=== PATIENT | male | born 1995 | race Caucasian/White ===

== ENCOUNTER 2018-09-28 22:00 | Emergency (ER) | payer BC ==
[~2018-09-28] VITALS: Ht 177.8 cm; Wt 63.5 kg
[2018-09-28 22:19] LABS: ABSOLUTE LYMPHOCYTES 2.7 thou/uL (0.8-5.3); NUCLEATED RBCS 0 /100WBC
[2018-09-28 22:20] LABS: ABSOLUTE BASOPHILS 0.1 thou/uL (0.0-0.2); ABSOLUTE EOSINOPHILS 0.2 thou/uL (0.0-0.7); ABSOLUTE MONOCYTES 0.9 thou/uL (0.0-1.2); ABSOLUTE NEUTROPHILS 6.2 thou/uL (1.6-8.1); HEMATOCRIT 44.7 % (42.0-52.0); LYMPHOCYTES 26.8 %; MCH 29.2 pg (26.0-34.0); MCHC 33.5 g/dL (28.0-37.0); MCV 87.4 fL (80.0-100.0); MONOCYTES 9.3 %; MPV 7.6 fl. (7.2-11.1); PLATELET COUNT* 384 thou/uL (150-400); POLYS 60.9 %; RBC 5.12 mil/uL (4.50-6.00); RDW-CV 13.9 % (10.5-14.5); WBC 10.2 thou/uL (4.0-11.0)
[2018-09-28 22:30] LABS: CALCIUM 8.9 mg/dL (8.5-10.1); CREATININE 1.3 mg/dL (0.6-1.3); POTASSIUM 3.3 mmol/L (3.5-5.1)
[2018-09-28 22:34] LABS: ALBUMIN 4.3 g/dL (3.4-5.0); TOTAL BILIRUBIN 0.3 mg/dL (<0.1-1.0); TOTAL PROTEIN 7.8 g/dL (6.4-8.2)
[2018-09-29 00:10] LABS: URINE BILIRUBIN NEGATIVE (Negative); URINE BLOOD NEGATIVE (Negative); URINE CLARITY CLEAR; URINE COLOR YELLOW; URINE GLUCOSE-RANDOM NEGATIVE (Negative); URINE KETONES NEGATIVE (Negative); URINE LEUKOCYTES-REFLEX NEGATIVE (Negative); URINE NITRITE-REFLEX NEGATIVE (Negative); URINE PROTEIN 1+ (Negative); URINE SPECIFIC GRAVITY 1.025 (1.005-1.030); URINE UROBILINOGEN 0.2 E.U./dl (0.2-1.0)
[2018-09-29 00:17] LABS: AMP/METHAMP POSITIVE (Negative); BARBITURATES Negative (Negative); BENZODIAZEPINES Negative (Negative); COCAINE Negative (Negative); METHADONE Negative (Negative); OPIATES Negative (Negative); PCP Negative (Negative); THC POSITIVE (Negative)
[2018-09-29 02:09] VITALS: BP 109/58
--- NOTE | 2018-09-30 16:57 | EKG ---
[place] [address] ELECTROCARDIOGRAM REPORT Name: MIGUEL WOOD Room: [facility]#: [id number] Admission: 09/28/18 Attend Phys: Discharge: 09/29/18 Date of : [birth year] Report #: [id number] THIS REPORT FOR: //name// [facility] ED Test Date: 2018-09-28 Test Time: 22:09:06 Pat Name: MIGUEL WOOD Department: Room: Gender: M Fold Skiver: ADILENE : 1995 Requested By: Maria Guadalupe Sandhu Order Number: [id number] MD: Luis Hurst Measurements Intervals [place] Rate: 77 P: 74 TX: 148 QRS: 86 QRSD: 89 T: 64 QT: 373 QTc: 423 Interpretive Statements Sinus rhythm Probable left atrial enlargement No previous ECG available for comparison Electronically Signed On 09-30-2018 16:57:00 CDT by Luis Hurst [email or web address] <ELECTRONICALLY SIGNED> By: Luis Hurst MD, [facility] 09/30/18 1657 2209 2209 Luis Hurst MD, FACC /EPI
== END 2018-09-29 02:10 | disposition home or self-care (01) ==
LOC: M.ERS 22:00
PROVIDERS: Emergency Medicine
DX: R56.9 Unspecified convulsions (principal); F19.10 Other psychoactive substance abuse, uncomplicated; R41.82 Altered mental status, unspecified

== ENCOUNTER 2019-01-14 17:21 | Emergency (ER) | payer BC ==
[~2019-01-14] VITALS: Ht 175.3 cm; Wt 59.0 kg
[2019-01-14] MEDS ORDERED: NEXIUM20 MG PO (17:45)
[2019-01-14] MEDS ORDERED: IBUPROFEN 800800 M1 PO (18:28)
[2019-01-14] MEDS ORDERED: NORCO 5-325 TA1 EAC1 PO (18:28)
[2019-01-14 19:03] VITALS: BP 110/76
== END 2019-01-14 19:05 | disposition home or self-care (01) ==
LOC: M.ERS 17:21
DX: S50.311A Abrasion of right elbow, initial encounter (principal); S60.512A Abrasion of left hand, initial encounter; M25.421 Effusion, right elbow; K21.9 Gastro-esophageal reflux disease without esophagitis; W00.0XXA Fall on same level due to ice and snow, initial encounter; Y93.89 Activity, other specified; Y92.89 Other specified places as the place of occurrence of the external cause; Y99.8 Other external cause status

== ENCOUNTER 2019-04-17 10:58 | Emergency (ER) | payer BC ==
[~2019-04-17] VITALS: Ht 177.8 cm; Wt 63.5 kg
[~2019-04-17 10:58] MED LIST: IBUPROFEN 800800 M1 PO; NEXIUM20 MG PO; NORCO 5-325 TA1 EAC1 PO
[2019-04-17] MEDS ORDERED: KEFLEX500 M1 PO (13:37)
[2019-04-17 14:11] VITALS: BP 124/88
== END 2019-04-17 14:13 | disposition home or self-care (01) ==
LOC: M.ERS 10:58
DX: S81.812A Laceration without foreign body, left lower leg, initial encounter (principal); K21.9 Gastro-esophageal reflux disease without esophagitis; F17.220 Nicotine dependence, chewing tobacco, uncomplicated; W26.8XXA Contact with other sharp object(s), not elsewhere classified, initial encounter; Y93.89 Activity, other specified; Y92.89 Other specified places as the place of occurrence of the external cause; Y99.8 Other external cause status